=== PATIENT | female | born 1975 | race Caucasian/White ===

== ENCOUNTER 2016-07-01 13:26 | Emergency (ER) | payer OTHER ==
--- NOTE | 2016-07-01 15:18 | DIAGNOSTIC IMAGING REPORT ---
PROCEDURE: CT ABD/PELVIS WITH CONTRAST INDICATION: Right abdominal pain. Nausea. History of tubal ligation. TECHNIQUE: 145 ml of Isovue 300 were injected intravenously and axial images were obtained of the entire abdomen and pelvis with sagittal and coronal reformations. COMPARISON: None. FINDINGS: ABDOMEN: Gallbladder is partially contracted (with moderate ingested material in the stomach). Liver, spleen, pancreas, kidneys, and aorta are normal. Bowel pattern is normal, including appendix. PELVIS: Uterus and adnexal structures are normal. No evidence of free fluid. Remodelling of the sacral spinal canal consistent with sacral nerve sheaths cysts or dural ectasia (incidental finding). IMPRESSION: 1. Negative CT abdomen and pelvis. 2. Findings discussed with KACEY Avelar. All CT scans at this facility use dose modulation, iterative reconstruction, and/or weight-based dosing when appropriate to reduce radiation dose to as low as reasonably achievable.
--- NOTE | 2016-07-01 16:57 | ED ORDER SUMMARY ---
..... Patient: CANDE BERRIOS OrderSheet [facility] VisitID: [id number] [address] [place] [address] 40y, F Registration Date/Time: 07/01/2016 ORDER SHEET Weight: 72.5 kg Allergies: No Known Drug Allergy GENERAL ORDERS: CBC w Diff Urgent (13:46 07/01/2016 EBonham per protocol) (Ack 13:48 TBergley) (13:55 EBonham) CMP Urgent (13:46 07/01/2016 EBonham per protocol) (Ack 13:48 TBergley) (13:55 EBonham) UA-Culture if indicated Urgent (13:46 07/01/2016 EBonham per protocol) (Ack 13:48 TBergley) (13:55 EBonham) Amylase Urgent (13:46 07/01/2016 EBonham per protocol) (Ack 13:48 TBergley) (13:55 EBonham) Lipase Urgent (13:46 07/01/2016 EBonham per protocol) (Ack 13:48 TBergley) (13:55 EBonham) Urine Urgent (13:46 07/01/2016 EBonham per protocol) (Ack 13:48 TBergley) (13:55 EBonham) CT Abd/Pel w Cont (No) (WNL) Urgent (14:36 07/01/2016 SThom A.R.N.P.) (Ack 14:37 TBergley) (15:29 Jose Luis) US Abdomen Limited (Yes) (pain, nausea=CT shows contracted GB) Urgent (15:32 07/01/2016 SThom A.R.N.P.) (Ack 15:34 TBergley) (17:02 MWinterer R.N.) MEDICATION ORDERS: IV FLUIDS: IV Saline Lock (13:46 07/01/2016 EBonham per protocol) (13:55 EBonham) IV NS with Normal Saline 1 Liter: initial bolus none -, then 500 mL/hr for X1 (NOW); Routine (14:07 07/01/2016 SThom A.R.N.P.) (14:21 EBonham) Zofran IV 4 mg (NOW) (14:07 07/01/2016 SThom A.R.N.P.) (14:[address] [facility]) Ketorolac IV 30 mg (NOW) (14:07/01/2016 SThom A.R.N.P.) (14:[address] [facility]) HYDROmorphone IV 0.5 mg (HIGH ALERT MEDICATION) (15:07/01/2016 SThom A.R.N.P.) (15:[address] [facility]) Diphenhydramine IV 12.5 mg (NOW) (15:29 07/01/2016 SThom A.R.N.P.) (15:[address] [facility]) ORDER SHEET NOTES: [Electronically signed by Cierra Zuniga (17:08 07/01/2016)] [Electronically signed by Shelia Dumont A.R.N.P. (17:45 07/01/2016)] [Electronically locked/signed by Cierra Zuniga (17:08 07/01/2016)]
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
--- NOTE | 2016-07-01 16:57 | ED ORDER SUMMARY ---
..... Patient: CANDE BERRIOS OrderSheet [facility] VisitID: [id number] [address] [place] [address] 40y, F Registration Date/Time: 07/01/2016 ORDER SHEET Weight: 72.5 kg Allergies: No Known Drug Allergy GENERAL ORDERS: CBC w Diff Urgent (13:46 07/01/2016 EBonham per protocol) (Ack 13:48 TBergley) (13:55 EBonham) CMP Urgent (13:46 07/01/2016 EBonham per protocol) (Ack 13:48 TBergley) (13:55 EBonham) UA-Culture if indicated Urgent (13:46 07/01/2016 EBonham per protocol) (Ack 13:48 TBergley) (13:55 EBonham) Amylase Urgent (13:46 07/01/2016 EBonham per protocol) (Ack 13:48 TBergley) (13:55 EBonham) Lipase Urgent (13:46 07/01/2016 EBonham per protocol) (Ack 13:48 TBergley) (13:55 EBonham) Urine Urgent (13:46 07/01/2016 EBonham per protocol) (Ack 13:48 TBergley) (13:55 EBonham) CT Abd/Pel w Cont (No) (WNL) Urgent (14:36 07/01/2016 SThom A.R.N.P.) (Ack 14:37 TBergley) (15:29 Jose Luis) US Abdomen Limited (Yes) (pain, nausea=CT shows contracted GB) Urgent (15:32 07/01/2016 SThom A.R.N.P.) (Ack 15:34 TBergley) (17:02 MWinterer R.N.) MEDICATION ORDERS: IV FLUIDS: IV Saline Lock (13:46 07/01/2016 EBonham per protocol) (13:55 EBonham) IV NS with Normal Saline 1 Liter: initial bolus none -, then 500 mL/hr for X1 (NOW); Routine (14:07 07/01/2016 SThom A.R.N.P.) (14:21 EBonham) Zofran IV 4 mg (NOW) (14:07 07/01/2016 SThom A.R.N.P.) (14:22 [facility]) Ketorolac IV 30 mg (NOW) (14:07/01/2016 SThom A.R.N.P.) (14:22 [facility]) HYDROmorphone IV 0.5 mg (HIGH ALERT MEDICATION) (15:07/01/2016 SThom A.R.N.P.) (15:53 [facility]) Diphenhydramine IV 12.5 mg (NOW) (15:29 07/01/2016 SThom A.R.N.P.) (15:53 [facility]) ORDER SHEET NOTES: [Electronically signed by Cierra Zuniga (17:08 07/01/2016)] [Electronically signed by Shelia Dumont A.R.N.P. (17:45 07/01/2016)] [Electronically locked/signed by Cierra Zuniga (17:08 07/01/2016)]
--- NOTE | 2016-07-01 16:57 | ED CLINICAL REPORT ---
Clinical Report - Physicians/Mid Levels [facility] [address] [place] [address] 07/01/2016 13:30 Patient: CANDE BERRIOS Time Seen: 1355 PM. Arrived- By private vehicle. Historian- patient. HISTORY OF PRESENT ILLNESS Chief Complaint: ABDOMINAL PAIN. This started 1 weeks ago and is still present and now worse. Modifying factors- worsened by food. Not relieved by anything. It is described as "pain" and stabbing and it is described as radiating to the epigastrum and upper back. The patient has had nausea and loss of appetite. No vomiting or diarrhea. Similar symptoms previously: None. Recent medical care: Not recently seen/assessed. REVIEW OF SYSTEMS No constipation, black stools, hematemesis, difficulty with urination or urinary frequency. No bloody stools, headache, chest pain, difficulty breathing or back pain. Denies current . Last bowel movement: yesterday. The patient has had fever and chills but not had weight loss. PAST HISTORY See nurses notes. No history of peptic ulcer. No history of gallstones, bowel obstruction, hypertension or diabetes mellitus. Has not had urinary calculi. Surgeries: Prior abdominal surgery: tubal ligation. Medications: Levothyroxine Sodium Oral. Allergies: No Known Drug Allergy. SOCIAL HISTORY Unknown if ever smoked. Occasional alcohol use. No drug use. ADDITIONAL NOTES The nursing notes have been reviewed. PHYSICAL EXAM Vital Signs: 07/01/2016 15:18 BP: 124/73. HR: 70. RR: 18. O2 saturation: 100%. Temp: 98 F. Have been reviewed and appear to be correct. Appearance: Alert. Oriented X3. No acute distress. Eyes: Pupils equal, round and reactive to light. Eyes normal inspection. Neck: Normal inspection. Neck supple. CVS: Normal heart rate and rhythm. Heart sounds normal. Respiratory: No respiratory distress. Breath sounds normal. Abdomen: Soft. Mild tenderness in the right upper quadrant. No guarding, rebound tenderness or Santamaria's sign present. Mild additional tenderness in the epigastric area. Bowel sounds normal. No obesity, rebound tenderness or guarding. Back: Normal inspection. No CVA tenderness. Skin: Skin warm and dry. Normal skin color. Normal skin turgor. Extremities: Extremities exhibit normal ROM. Neuro: Oriented X 3. LABS, X-RAYS, AND EKG Pelvic CT: Normal study. Pelvic CT performed with IV contrast. The study was interpreted by the radiologist. Abdominal Sonogram: No acute disease. Laboratory Tests: Laboratory tests have been ordered, with results reviewed and considered in the medical decision making process. UA-Culture if indicated: (ALEX: 07/01/2016 13:52) ( [facility] 07/01/2016 14:31) Final results Test Result Flag Units (Reference) URINE COLOR YELLOW URINE APPEARANCE CLEAR URINE GLUCOSE NEGATIVE (NEGATIVE) URINE BILIRUBIN NEGATIVE (NEGATIVE) URINE KETONE NEGATIVE (NEGATIVE) URINE SPECIFIC GRAVITY 1.020 (1.010-1.030) URINE PH 6.0 (5.0-8.0) URINE PROTEIN NEGATIVE (NEGATIVE) URINE UROBILINOGEN 0.2 EU/dL (0.2-1.0) URINE NITRITE NEGATIVE (NEGATIVE) URINE BLOOD NEGATIVE (NEGATIVE) URINE LEUK ESTERASE NEGATIVE (NEGATIVE) URINE RBC RARE rbc/hpf (0-1) URINE WBC 0-1 wbc/hpf (0-1) URINE EPITHELIAL CELLS 1-3 EPI/hpf (0-5) URINE BACTERIA TRACE (<1+) (NONE SEEN) URINE COMMENT CULT NOT INDICATED URINE CULTURES ARE SET-UP BASED ON THE FOLLOWING CRITERIA:POSITIVE NITRITEPOSITIVE LEUKOCYTE ESTERASEGREATER THAN 10 WHITE BLOOD CELLSMODERATE (2+) OR GREATER BACTERIA Urine: (ALEX: 07/01/2016 13:52) ( [facility] 07/01/2016 14:20) Final results Test Result Flag Units (Reference) URINE NEGATIVE CBC w Diff: (ALEX: 07/01/2016 13:52) ( [facility] 07/01/2016 14:15) Final results Test Result Flag Units (Reference) WHITE BLOOD COUNT 7.8 K/uL (4.5-11.5) RED BLOOD COUNT 4.58 M/uL (4.00-5.20) HEMOGLOBIN 14.1 gm/dL (12.0-16.0) HEMATOCRIT 42.4 % (36.0-46.0) MEAN CELL VOLUME 93 fL (80-100) MEAN CORPUSCULAR HGB 31 pg (26-34) MEAN CORPUSCULAR HGB CONC 33 g/dL (31-37) RED CELL DISTRIBUTION WIDTH 12.8 % (11.6-14.8) PLATELET COUNT 195 K/uL (150-400) NEUTROPHIL % 63.8 % (50-75) LYMPH % 28.2 % (25-40) MONO % 6.6 % (3-14) EOSINOPHIL % 1.0 % (0-4) BASOPHIL % 0.4 % (0-2) CMP: (ALEX: 07/01/2016 13:52) ( MsgRcvd 07/01/2016 14:14) Final results Test Result Flag Units (Reference) GLUCOSE 92 mg/dL (70-110) BUN 12 mg/dL (7-18) CREATININE 0.9 mg/dL (0.6-1.3) Estimated GFR >60 mL/min Estimated GFR- >60 mL/min Note: Persistent reduction over 3 months in eGFR<60 mL/min/1.73 m2 defines CKD. Patients with eGFR values>=60 mL/min/1.73 m2 may also have CKD if evidence ofpersistent proteinuria. Additional information may be foundat www.kidney.org. SODIUM 139 mmol/L (136-145) POTASSIUM 3.8 mmol/L (3.5-5.1) CHLORIDE 102 mmol/L (98-107) CARBON DIOXIDE 26 mmol/L (21-32) CALCIUM 9.1 mg/dL (8.5-10.1) TOTAL PROTEIN 7.7 g/dL (6.4-8.2) ALBUMIN 4.0 g/dL (3.3-5.0) BILIRUBIN, TOTAL 0.7 mg/dL (0.0-1.0) ALKALINE PHOSPHATASE 73 U/L (46-116) AST (SGOT) 17 U/L (15-37) ALT (SGPT) 27 U/L (12-78) LIPASE 93 U/L (73-393) AMYLASE 48 U/L (25-115) . PROGRESS AND PROCEDURES Course of Care: 15:38 07/01/16. Labs grossly normal. CT normal except slightly contracted gallbladder. Will order ultrasound. Plan discussed w/ pt. Received toradol/ zofran-requests add'l rx. Dilaudid/benadryl ordered. discussed findings and lack of definitive cause for her symptoms. Overall reassuring. Plan to make PCP appt for followup. Verbalizes understanding. 17:45. Patient is stable. Patient counseled in person regarding the patient's condition, test results, diagnosis and need for additional testing. Disposition: Discharged. Condition: stable. CLINICAL IMPRESSION Acute abdominal pain of unknown cause. INSTRUCTIONS ( Ms. Berrios was evaluated in the ER today. She may need to be absent this week due to illness.). Rest. Drink plenty of fluids. Avoid alcohol and NSAIDS. Examples of NSAIDS include aspirin, ibuprofen (Advil) and naproxen (Aleve). Avoid lactose-containing (such as milk, cheese and ice cream) and spicy foods. (Labs were reassuring, as were CT and ultrasound. Should your pain become markedly worse over then next 24 hours, or you develop additional symptoms, please return to the ER). Warnings: GENERAL WARNINGS: Return or contact your physician immediately if your condition worsens or changes unexpectedly, if not improving as expected, or if other problems arise. Your Current Medications: CONTINUE TAKING THE FOLLOWING MEDICATIONS: Levothyroxine Sodium Oral. Prescription Medications: Hydrocodone/APAP 5mg / 325mg: take 1 orally every 6 hours as needed for pain. Dispense ten (10). No refill. Zofran (orally disintegrating tablets) 4 mg: take 1 orally every 8 hours. Dispense five (5). No refill. Prilosec 20 mg capsules: take 1 capsule orally every 12 hours. Dispense thirty (30). No refill. Follow-up: Follow up with your doctor in about two days even if well. Understanding of the discharge instructions verbalized. (Electronically signed by Shelia Dumont A.R.N.P. 07/01/2016 17:45)
--- NOTE | 2016-07-01 17:45 | ED MED RECONCILIATION SUMMARY ---
Patient: CANDE BERRIOS Medication Reconciliation Report [facility] VisitID: [id number] [address] [place] [address] 40y, F Registration Date/Time: 07/01/2016 Weight: 72.5 kg Height/Length: 61 in. BMI: 30.2 ALLERGIES: No Known Drug Allergy The patient's Home Medications are listed below: CONTINUE TAKING THE FOLLOWING MEDICATIONS: Levothyroxine Sodium Oral The source(s) of the original Home Medication information: Not obtained. The following Medications were given to the patient in the Emergency Department: IV NS IV Fluids bolus 1000 mL wide open, administered: 07/01/2016 2:21:00 PM Zofran [IVP] IVP 4 mg, administered: 07/01/2016 2:22:00 PM Ketorolac [IVP] IVP 30 mg, administered: 07/01/2016 2:22:00 PM Hydromorphone [IVP] IVP 0.5 mg, administered: 07/01/2016 3:40:00 PM Diphenhydramine [IVP] IVP 12.5 mg, administered: 07/01/2016 3:40:00 PM The following Medications were prescribed to the patient: Hydrocodone/APAP 5mg / 325mg: take 1 orally every 6 hours as needed for pain. Dispense ten (10). No refill. -- Shelia Dumont A.R.NAnamP. Zofran (orally disintegrating tablets) 4 mg: take 1 orally every 8 hours. Dispense five (5). No refill. -- Shelia Dumont A.R.NAnamPAnam Prilosec 20 mg capsules: take 1 capsule orally every 12 hours. Dispense thirty (30). No refill. -- Shelia Dumont A.R.N.P.
--- NOTE | 2016-07-01 17:45 | ED DISCHARGE INSTRUCTIONS ---
Patient: CANDE BURRIS General Instructions [facility] VisitID: [id number] [address] [place] [address] 40y, F Registration Date/Time: 07/01/2016 Acute abdominal pain of unknown cause. INSTRUCTIONS ( Ms. Burris was evaluated in the ER today. She may need to be absent this week due to illness.). Rest. Drink plenty of fluids. Avoid alcohol and NSAIDS. Examples of NSAIDS include aspirin, ibuprofen (Advil) and naproxen (Aleve). Avoid lactose-containing (such as milk, cheese and ice cream) and spicy foods. (Labs were reassuring, as were CT and ultrasound. Should your pain become markedly worse over then next 24 hours, or you develop additional symptoms, please return to the ER). Warnings: GENERAL WARNINGS: Return or contact your physician immediately if your condition worsens or changes unexpectedly, if not improving as expected, or if other problems arise. Your Current Medications: CONTINUE TAKING THE FOLLOWING MEDICATIONS: Levothyroxine Sodium Oral. Prescription Medications: Hydrocodone/APAP 5mg / 325mg: take 1 orally every 6 hours as needed for pain. Dispense ten (10). No refill. Zofran (orally disintegrating tablets) 4 mg: take 1 orally every 8 hours. Dispense five (5). No refill. Prilosec 20 mg capsules: take 1 capsule orally every 12 hours. Dispense thirty (30). No refill. Follow-up: Follow up with your doctor in about two days even if well. Understanding of the discharge instructions verbalized. ADDITIONAL INFORMATION Abdominal Pain, Unknown Cause (Female) The exact cause of your abdominal (stomach) pain is not certain. This does not mean that this is something to worry about, or the right tests were not done. Everyone likes to know the exact cause of the problem, but sometimes with abdominal pain, there is no clear-cut cause, and this could be a good thing. The good news is that your symptoms can be treated, and you will feel better. Your condition does not seem serious now; however, sometimes the signs of a serious problem may take more time to appear. For this reason,it is important for you to watch for any new symptoms, problems,or worsening of your condition. Over the next few days, the abdominal pain may come and go, or be continuous. Other common symptoms can include nausea and vomiting. Sometimes it can be difficult to tell if you feel nauseous, you may just feel bad and not associate that feeling with nausea. Constipation, diarrhea, and a fever may go along with the pain. The pain may continue even if treated correctly over the following days. Depending on how things go, sometimes the cause can become clear and may require further or different treatment. Additional evaluations, medications, or tests may be needed. Home care Your health care provider may prescribe medications for pain, symptoms, or an infection. Follow the health care provider's instructions for taking these medications. General care Rest until your next exam. No strenuous activities. Try to find positions that ease discomfort. A small pillow placed on the abdomen may help relieve pain. Something warm on your abdomen (such as a heating pad) may help, but be careful not to burn yourself. Diet Do not force yourself to eat, especially if having cramps, vomiting, or diarrhea. Water is important so you do not get dehydrated. Soup may also be good. Sports drinks may also help, especially if they are not too acidic. Make sure you don't drink sugary drinks as this can make things worse. Take liquids in small amounts. Do not guzzle them. Caffeine sometimes makes the pain and cramping worse. Avoid dairy products if you have vomiting or diarrhea. Don't eat large amounts at a time. Wait a few minutes between bites. Eat a diet low in fiber (called a low-residue diet). Foods allowed include refined breads, white rice, fruit and vegetable juices without pulp, tender meats. These foods will pass more easily through the intestine. Avoid whole-grain foods, whole fruits and vegetables, meats, seeds and nuts, fried or fatty foods, dairy, alcohol and spicy foods until your symptoms go away. Follow-up care Follow up with your health care provider as instructed, or if your pain does not begin to improve in the next 24 hours. When to seek medical care Seek prompt medical care if any of the following occur: Pain gets worse or moves to the right lower abdomen New or worsening vomiting or diarrhea Swelling of the abdomen Unable to pass stool for more than three days Fever of 100.4F (38C) or higher, or as directed by your healthcare provider. Blood in vomit or bowel movements (dark red or black color) Jaundice (yellow color of eyes and skin) Weakness, dizziness Chest, arm, back, neck or jaw pain Unexpected vaginal bleeding or missed period Call 911 Call emergency services if any of the following occur: Trouble breathing Confusion Fainting or loss of consciousness Rapid heart rate Seizure You have been given the following additional information: Abdominal Pain, Unknown Cause, (Female) ( Ms. Burris was evaluated in the ER today. She may need to be absent this week due to illness.). Rest. (Electronically signed by Shelia Dumont A.R.N.P. 07/01/2016 17:45)
--- NOTE | 2016-07-01 17:45 | ED MED RECONCILIATION SUMMARY ---
Patient: CANDE BERRIOS Medication Reconciliation Report [facility] VisitID: [id number] [address] [place] [address] 40y, F Registration Date/Time: 07/01/2016 Weight: 72.5 kg Height/Length: 61 in. BMI: 30.2 ALLERGIES: No Known Drug Allergy The patient's Home Medications are listed below: CONTINUE TAKING THE FOLLOWING MEDICATIONS: Levothyroxine Sodium Oral The source(s) of the original Home Medication information: Not obtained. The following Medications were given to the patient in the Emergency Department: IV NS IV Fluids bolus 1000 mL wide open, administered: 07/01/2016 2:21:00 PM Zofran [IVP] IVP 4 mg, administered: 07/01/2016 2:22:00 PM Ketorolac [IVP] IVP 30 mg, administered: 07/01/2016 2:22:00 PM Hydromorphone [IVP] IVP 0.5 mg, administered: 07/01/2016 3:40:00 PM Diphenhydramine [IVP] IVP 12.5 mg, administered: 07/01/2016 3:40:00 PM The following Medications were prescribed to the patient: Hydrocodone/APAP 5mg / 325mg: take 1 orally every 6 hours as needed for pain. Dispense ten (10). No refill. -- Shelia Dumont A.R.NAnamP. Zofran (orally disintegrating tablets) 4 mg: take 1 orally every 8 hours. Dispense five (5). No refill. -- Shelia Dumont A.R.NAnamPAnam Prilosec 20 mg capsules: take 1 capsule orally every 12 hours. Dispense thirty (30). No refill. -- Shelia Dumont A.R.N.P.
--- NOTE | 2016-07-01 17:45 | ED MAR SUMMARY ---
..... Medication Administration Record [facility] [address] [place] [address] Patient: CANDE BERRIOS Visit ID: [id number] 40y, F Weight: 72.5 kg Height/Length: 61 in BMI: 30.2 ALLERGIES: No Known Drug Allergy Start 14:07/01/2016 Cierra Zuniga,, Stop 15:52 07/01/2016 Cierra Zuniga, Medication Administered: IV NS (SALINE), Dose: IV Fluids, Bolus: 1000 mL wide open, Dispensed: 1000 mL bag, Site: #1 left AC. Medication Ordered: IV NS with Normal Saline 1 Liter: initial bolus none -, then 500 mL/hr for X1 (NOW); Routine. Given 14:07/01/2016 Cierra Zuniga, Medication Administered: ZOFRAN [IVP] (ONDANSETRON HCL), Dose: 4 mg IVP, Site: #1 left AC. Medication Ordered: Zofran IV 4 mg (NOW). Given 14:07/01/2016 Cierra Zuniga, Medication Administered: KETOROLAC [IVP], Dose: 30 mg IVP, Site: #1 left AC. Medication Ordered: Ketorolac IV 30 mg (NOW). Given 15:07/01/2016 Cierra Zuniga, Medication Administered: HYDROMORPHONE [IVP], Dose: 0.5 mg IVP, Site: #1 left AC. Medication Ordered: HYDROmorphone IV 0.5 mg (HIGH ALERT MEDICATION). Given 15:07/01/2016 Cierra Zuniga, Medication Administered: DIPHENHYDRAMINE [IVP], Dose: 12.5 mg IVP, Site: #1 left AC. Medication Ordered: Diphenhydramine IV 12.5 mg (NOW).
--- NOTE | 2016-07-01 17:45 | ED MAR SUMMARY ---
..... Medication Administration Record [facility] [address] [place] [address] Patient: CANDE BERRIOS Visit ID: [id number] 40y, F Weight: 72.5 kg Height/Length: 61 in BMI: 30.2 ALLERGIES: No Known Drug Allergy Start 14:07/01/2016 Cierra Zuniga,, Stop 15:52 07/01/2016 Cierra Zuniga, Medication Administered: IV NS (SALINE), Dose: IV Fluids, Bolus: 1000 mL wide open, Dispensed: 1000 mL bag, Site: #1 left AC. Medication Ordered: IV NS with Normal Saline 1 Liter: initial bolus none -, then 500 mL/hr for X1 (NOW); Routine. Given 14:07/01/2016 Cierra Zuniga, Medication Administered: ZOFRAN [IVP] (ONDANSETRON HCL), Dose: 4 mg IVP, Site: #1 left AC. Medication Ordered: Zofran IV 4 mg (NOW). Given 14:07/01/2016 Cierra Zuniga, Medication Administered: KETOROLAC [IVP], Dose: 30 mg IVP, Site: #1 left AC. Medication Ordered: Ketorolac IV 30 mg (NOW). Given 15:07/01/2016 Cierra Zuniga, Medication Administered: HYDROMORPHONE [IVP], Dose: 0.5 mg IVP, Site: #1 left AC. Medication Ordered: HYDROmorphone IV 0.5 mg (HIGH ALERT MEDICATION). Given 15:07/01/2016 Cierra Zuniga, Medication Administered: DIPHENHYDRAMINE [IVP], Dose: 12.5 mg IVP, Site: #1 left AC. Medication Ordered: Diphenhydramine IV 12.5 mg (NOW).
--- NOTE | 2016-07-01 18:53 | DIAGNOSTIC IMAGING REPORT ---
PROCEDURE: US ABDOMEN ULTRASOUND-LIMITED INDICATION: RUQ PAIN TECHNIQUE: Valladares scale and color Doppler sonographic images of the abdomen were obtained. COMPARISON: None. FINDINGS: Gallbladder is partially contracted, but within normal limits. No evidence of gallstones. Common duct is normal (3 mm). Portions of the liver, pancreas, and right kidney are seen, and are normal. IMPRESSION: 1. Negative ultrasound of the gallbladder and right upper quadrant.
== END 2016-07-01 17:05 | disposition home or self-care (01) ==
LOC: ED SRH 13:26
DX: R10.13 Epigastric pain (principal); R11.2 Nausea with vomiting, unspecified; Z79.899 Other long term (current) drug therapy
CPT/HCPCS: 90004; 90100; 92235; 92530; 93070; 95059